=== PATIENT | male | born 1960 | race Caucasian/White ===

== ENCOUNTER → 2017-04-12 | Outpatient (CLI) | payer MEDICARE, OTHER, MEDICAID ==
--- NOTE | 2017-04-12 16:59 | RADIOLOGY REPORT (SQ) ---
EXAM DESCRIPTION: CT ABD/PELVIS COMBO COMPLETED DATE/TIME: 04/12/2017 4:00 pm REASON FOR STUDY: HEMATURIA R31.0 GROSS HEMATURIA COMPARISON: None. TECHNIQUE: CT scan of the abdomen and pelvis performed with and without intravenous contrast, and wi thout oral contrast. Contrasted imaging performed helical scanning technique and dynamic intravenous contrast injection. Images reviewed with lung, soft tissue, and bone windows. Reconstructed coronal a nd sagittal MPR images reviewed. Delayed images for evaluation of the urinary system also acquired. A ll images stored on PACS. All CT scanners at this facility use dose modulation, iterative reconstruction, and/or weight based d osing when appropriate to reduce radiation dose to as low as reasonably achievable (ALARA). [facility]: Dose Right [facility]: CareDose [facility]: Dose Right [facility]: Teradose 4D [facility]: Sensopia CONTRAST TYPE AND DOSE: contrast/concentration: Isovue 370.00 mg/ml; Total Contrast Delivered: 83.0 ml; Total Saline Delivered: 68.1 ml RENAL FUNCTION: Creatinine 1 RADIATION DOSE: Up-to-date CT equipment and radiation dose reduction techniques were employed. CTDIv ol: 10.8 - 12.1 mGy. DLP: 1910 mGy-cm. . LIMITATIONS: None. FINDINGS: NON-CONTRASTED IMAGING: Numerous intrarenal calculi are seen bilaterally. No ureteral or bladder calculus is appreciated. POST-CONTRASTED IMAGING: LOWER CHEST: No significant findings. No nodules or infiltrates. LIVER: Normal size. No masses or dilated ducts. SPLEEN: Normal size. No focal lesions. PANCREAS: No masses. No significant calcifications. No adjacent inflammation or peripancreatic fluid collections. Pancreatic duct not dilated. GALLBLADDER: No identified stones by CT criteria. No inflammatory changes to suggest cholecystitis. ADRENAL GLANDS: No significant masses or asymmetry. RIGHT KIDNEY AND URETER: No solid masses. Multiple intrarenal calcifications are present. No hydr onephrosis or hydroureter. LEFT KIDNEY AND URETER: No solid masses. Multiple intrarenal calcifications are present. No hydro nephrosis or hydroureter. AORTA AND VESSELS: No aneurysm. No dissection. Renal arteries, SMA, celiac without stenosis. RETROPERITONEUM: No retroperitoneal adenopathy, hemorrhage or masses. BOWEL AND PERITONEAL CAVITY: Large amount of stool is present. No mass is seen. APPENDIX: Not identified. PELVIS: The urinary bladder is normal. Prostate gland and seminal vesicles are unremarkable. ABDOMINAL WALL: No masses. No hernias. BONES: Surgical hardware is present in the left hip secondary to prior injury. OTHER: No other significant finding. IMPRESSION: 1. There are numerous renal calculi in each kidney with no ureteral stone or obstructio n. 2. There is a large amount of stool suggesting constipation. TECHNICAL DOCUMENTATION: JOB ID: [id number] Quality ID # [id number]: Final reports with documentation of one or more dose reduction techniques (e.g., Au tomated exposure control, adjustment of the mA and/or kV according to patient size, use of iterative reconstruction technique) 2010 [employer]- All Rights Reserved
== END ==
LOC: RAD 15:04
PROVIDERS: ATTEND Urology
DX: R31.0 Gross hematuria (principal)
CPT/HCPCS: 74178; 82565

== ENCOUNTER 2017-09-26 12:31 | Inpatient (IN) | payer MEDICARE, OTHER, MEDICAID ==
[2017-09-26] MEDS ORDERED: NORMAL SALINE 1000 ML 1,000 ML IV PRN (14:28)
[2017-09-26 15:05] LABS: ABSOLUTE BASOPHILS # (AUTO) 0.1 10^3/uL (0.0-0.2); ABSOLUTE LYMPHOCYTES (AUTO) 0.7 10^3/uL (0.5-4.7); ABSOLUTE MONOCYTES (AUTO) 0.4 10^3/uL (0.1-1.4); ABSOLUTE NEUT (AUTO) 9.2 10^3/uL (1.7-8.2); BASOPHILS % (AUTO) 0.9 % (0-2); HEMATOCRIT 39.6 % (37.9-51.0); HEMOGLOBIN 13.4 g/dL (13.5-17.0); HGB HCT DIFFERENCE 0.6; MEAN CORPUSCULAR HEMOGLOBIN 27.3 pg (27.0-33.4); MEAN CORPUSCULAR HGB CONC 33.8 g/dL (32.0-36.0); MEAN CORPUSCULAR VOLUME 81 fl (80-97); RED BLOOD COUNT 4.91 10^6/uL (4.35-5.55); RED CELL DISTRIBUTION WIDTH 13.2 % (11.5-14.0); SEGMENTED NEUTROPHILS % (AUTO) 88.1 % (42-78); WHITE BLOOD COUNT 10.4 10^3/uL (4.0-10.5)
[2017-09-26 15:26] LABS: ALANINE AMINOTRANSFERASE 27 U/L (21-72); ALBUMIN 4.3 g/dL (3.5-5.0); ALKALINE PHOSPHATASE 127 U/L (38-126); ANION GAP 16 (5-19); ASPARTATE AMINO TRANSFERASE 24 U/L (17-59); BILIRUBIN,DIRECT 0.3 mg/dL (0.0-0.4); BILIRUBIN,TOTAL 0.5 mg/dL (0.2-1.3); BLOOD UREA NITROGEN 23 mg/dL (7-20); CARBON DIOXIDE 28 mmol/L (22-30); CHLORIDE 100 mmol/L (98-107); CREATININE RESULT 1.07 mg/dL (0.52-1.25); GLUCOSE 135 mg/dL (75-110); POTASSIUM 3.5 mmol/L (3.6-5.0); TOTAL PROTEIN 6.9 g/dL (6.3-8.2)
[2017-09-26] MEDS ORDERED: NALOXONE HCL INJ/PF 0.4 MG/1 ML SDV ONE (17:33)
[2017-09-26] MEDS ORDERED: FENTANYL CITRATE INJ/PF 100 MCG/2 ML AMPUL ONE (17:34)
[2017-09-26] MEDS ORDERED: MIDAZOLAM 2 MG/2 ML INJ ONE ×3 (17:34)
[2017-09-26] MEDS ORDERED: GLUCAGON,HUMAN RECOMB 1 MG INJ ONE (17:35)
[2017-09-26] MEDS ORDERED: FLUMAZENIL INJ 0.5 MG/5 ML VIAL ONE (17:35)
[2017-09-26] MEDS ORDERED: EPINEPHRINE INJ 1 MG/10 ML DISP.SYRIN ONE (17:35)
[2017-09-26] MEDS: PANTOPRAZOLE SODIUM 40 MG VIAL IV SCH (17:50)
--- NOTE | 2017-09-26 20:07 | PDOC CONSULTATION ---
Consultation Consult Date: 09/26/17 History of Present Illness Admission Date/PCP: 09/26/17 12:31 EDDIE CALVIN MD History of Present Illness: This is a 57-year-old patient who was admitted directly to the hospital with coffee-ground emesis. Patient started to vomit last night and vomited multiple times during the night and 3 times while in the hospital. He has a chronic history of abdominal pain that is recurrent but he has been feeling more abdominal burning pain in the last few days. He denies bright red blood per rectum or black stools. On admission his hemoglobin was 13. Past Medical History Cardiac Medical History: Reports: Hypertension Pulmonary Medical History: Denies: Tuberculosis Neurological Medical History: Reports: Migraine Denies: Seizures GI Medical History: Reports: Gastroesophageal Reflux Disease Psychiatric Medical History: Reports: Depression Social History Smoking Status: Never Smoker Frequency of Alcohol Use: None Hx Recreational Drug Use: No Drugs: None Hx Prescription Drug Abuse: No - Advance Directive Resuscitation Status: Full Code Family History Family History: Reviewed & Not Pertinent Parental Family History Reviewed: No Children Family History Reviewed: NA Sibling(s) Family History Reviewed.: NA Medication/Allergy Home Medications: Calcium Carbonate/Vitamin D3 [Os-Bebeto 250 mg with Vitamin D 125 Units] 1 tab PO DAILY 09/26/17 Ergocalciferol (Vitamin D2) [Drisdol 50,000 Unit (1.25MG) Capsule] 50,000 unit PO TH@1000 09/26/17 Fludrocortisone Acetate [Florinef 0.1 mg Tablet] 0.1 mg PO DAILY 09/26/17 Hydrocodone Bit/Acetaminophen [Hydrocodon-Acetaminophen 5-325] 1 tab PO Q8HP PRN 09/26/17 Inulin/Chromium Picolinate [Fiber Gummies] 2 each PO DAILY 09/26/17 Magnesium Citrate 2 tbs PO DAILY 09/26/17 Melatonin 10 mg PO QHS 09/26/17 Polyethylene Glycol 3350 [Miralax Powder 17 gm/Packet] 1 packet PO Q2D@1800 Vortioxetine Hydrobromide [Brintellix] 10 mg PO DAILY 09/26/17 Allergies/Adverse Reactions: carbidopa [From Sinemet] Allergy (Severe, Verified 09/26/17 15:30) Hypotension levodopa [From Sinemet] Allergy (Severe, Verified 09/26/17 15:30) Hypotension duloxetine HCl [From Cymbalta] Allergy (Verified 09/08/15 18:25) Dizziness montelukast sodium [From Singulair] Allergy (Verified 09/08/15 18:25) Dizziness pregabalin [From Lyrica] Allergy (Verified 09/08/15 18:25) ropinirole Adverse Reaction (Verified 09/26/17 15:32) Hypotension Review of Systems All systems: reviewed and no additional remarkable complaints except as stated Physical Exam Vital Signs: Temp Pulse Resp BP Pulse Ox 97.1 F 90 14 154/93 H 98 09/26/17 17:06 09/26/17 19:40 09/26/17 19:40 09/26/17 19:40 09/26/17 19:40 Intake & Output 09/25/17 09/26/17 09/27/17 06:59 06:59 06:59 Intake Total 732 Output Total 150 Balance 582 Weight 70.5 kg Exam: General: Patient is alert and looks well. He has a facial expression consistent with Parkinson's HEENT: There is no pallor or jaundice. PERRLA. Oropharynx normal Respiratory: No chest deformity. No respiratory distress. Chest wall palpitation was unremarkable. Breath sounds were normal Cardiovascular: Heart sounds 1 and 2 normal with no murmurs. Abdominal: Not distended. Soft and nontender. Liver and spleen not palpable. No ascites demonstrated. Bowel sounds active. Rectal examination was deferred. Extremities: No edema Neurological: Alert and oriented x4. He is stiff Skin: No significant rash Psychological: Normal affect Results Laboratory Results: 09/26/17 14:57 09/26/17 14:57 09/26/17 09/26/17 14:57 14:57 WBC 10.4 RBC 4.91 Hgb 13.4 L Hct 39.6 MCV 81 MCH 27.3 MCHC 33.8 RDW 13.2 Plt Count 227 Seg Neutrophils % 88.1 H Lymphocytes % 7.0 L Monocytes % 4.0 Eosinophils % 0.0 Basophils % 0.9 Absolute Neutrophils 9.2 H Absolute Lymphocytes 0.7 Absolute Monocytes 0.4 Absolute Eosinophils 0.0 Absolute Basophils 0.1 Sodium 144.0 Potassium 3.5 L Chloride 100 Carbon Dioxide 28 Anion Gap 16 BUN 23 H Creatinine 1.07 Est GFR ( Amer) > 60 Est GFR (Non-Af Amer) > 60 Glucose 135 H Calcium 10.0 Total Bilirubin 0.5 AST 24 ALT 27 Alkaline Phosphatase 127 H Total Protein 6.9 Albumin 4.3 Assessment & Plan - Diagnosis (1) Vomiting Is this a current diagnosis for this admission?: Yes Plan: He has been vomiting since last night associated with abdominal pain and the etiology is unclear. He will undergo an EGD and if unremarkable CAT scan of his abdomen. He is not on a PPI at home (2) Coffee ground emesis Is this a current diagnosis for this admission?: Yes Plan: His hemoglobin was normal on admission but this will be followed up (3) Abdominal pain Is this a current diagnosis for this admission?: Yes
--- NOTE | 2017-09-26 20:09 | Operative Report ---
Operative Report DATE OF SURGERY: 09/26/17 Operative Report: Pre-op diagnosis: Vomiting and abdominal pain Post-op diagnosis: 1. Antral gastritis 2. 2-3 cm hiatal hernia 3. Large amount of liquid in the stomach Surgery: Esophagogastroduodenoscopy with biopsy Medications: Versed 2mg Fentanyl 50mcg IV push Tissue removed: Antral biopsy for pathology Procedure: After informed consent obtained from patient, the throat was sprayed with Hurricane and conscious sedation was achieved. The upper endoscope was inserted into the esophagus under direct vision and advanced into the stomach. The duodenum was entered and examined to the second part. Endoscope was then slowly pulled out of the patient as the mucosa was examined into details. Patient tolerated procedure well. Findings Esophagus: Diffuse loss of vascular markings most likely related to frequent vomiting Z-line at: 38 cm with top of the gastric fold at 40 cm Antrum: Mild erythema Body: Normal Fundus: Large amount of greenish liquid. Duodenum first part: Normal Duodenum second part: Normal Plan: Await pathology. Continue Protonix and schedule CT of the abdomen to rule out obstruction OPERATION: .
[2017-09-26] MEDS ORDERED: ONDANSETRON HCL 8 MG TABLET PO PRN (20:11)
[2017-09-26] MEDS: NORMAL SALINE 1000 ML 1,000 ML IV PRN (22:21)
[2017-09-27] MEDS: PANTOPRAZOLE SODIUM 40 MG VIAL IV SCH ×2 (05:26→18:19)
[2017-09-27] MEDS: NORMAL SALINE 1000 ML 1,000 ML IV PRN (06:35)
--- NOTE | 2017-09-27 12:03 | RADIOLOGY REPORT (SQ) ---
EXAM DESCRIPTION: CT ABD/PELVIS WITH IV ORAL COMPLETED DATE/TIME: 09/27/2017 11:11 am REASON FOR STUDY: abd pain,vomiting,r/o SBO. Reduce oral contrast K29.01 ACUTE GASTRITIS WITH BLEED ING R10.10 UPPER ABDOMINAL PAIN, UNSPECIFIED COMPARISON: 04/12/2017. TECHNIQUE: CT scan of the abdomen and pelvis performed with intravenous and oral contrast using [place] dee scanning technique with dynamic intravenous contrast injection. Images reviewed with lung, soft t issue, and bone windows. Reconstructed coronal and sagittal MPR images reviewed. Delayed images for e valuation of the urinary system also acquired. All images stored on PACS. All CT scanners at this facility use dose modulation, iterative reconstruction, and/or weight based d osing when appropriate to reduce radiation dose to as low as reasonably achievable (ALARA). [facility]: Dose Right [facility]: CareDose [facility]: Dose Right [facility]: Teradose 4D [facility]: [employer]Show CONTRAST TYPE AND DOSE: contrast/concentration: Isovue 370.00 mg/ml; Total Contrast Delivered: 76.0 ml; Total Saline Delivered: 67.0 ml RENAL FUNCTION: BUN 23 creatinine 1.07. RADIATION DOSE: CT Rad equipment meets quality standard of care and radiation dose reduction techniq ues were employed. CTDIvol: 10.0 - 11.5 mGy. DLP: 1150 mGy-cm.. LIMITATIONS: None. FINDINGS: LOWER CHEST: Infiltrate in the left lung base. LIVER: Normal size. No masses. No dilated ducts. SPLEEN: Normal size. No focal lesions. PANCREAS: No masses. No significant calcifications. No adjacent inflammation or peripancreatic fluid collections. Pancreatic duct not dilated. GALLBLADDER: No identified stones by CT criteria. No inflammatory changes to suggest cholecystitis. ADRENAL GLANDS: No significant masses or asymmetry. RIGHT KIDNEY AND URETER: No solid masses. Multiple calculi in the calices and renal pelvis. No hydro nephrosis or hydroureter. LEFT KIDNEY AND URETER: No solid masses. Multiple calculi in the calices and renal pelvis. No hydron ephrosis or hydroureter. AORTA AND VESSELS: No aneurysm. No dissection. Renal arteries, SMA, celiac without stenosis. RETROPERITONEUM: No retroperitoneal adenopathy, hemorrhage or masses. BOWEL AND PERITONEAL CAVITY: Prominent dilation of the proximal and mid small bowel. Distal small kade wel is not dilated. Contrast is present throughout the small bowel and into the proximal colon. Pro minent stool in the distal colon. No visualized masses. No free fluid. No inflammatory changes or th ickening of bowel wall. APPENDIX: Not visualized. PELVIS: No significant masses. Normal bladder. No free fluid. ABDOMINAL WALL: No masses. No hernias. BONES: No significant or acute findings. Left hip prosthesis. OTHER: No other significant finding. IMPRESSION: 1. PROMINENT DILATION OF THE PROXIMAL AND MID SMALL BOWEL CONSISTENT WITH MECHANICAL OBSTRUCTION. CO NTRAST IS PRESENT IN THE NONDILATED DISTAL SMALL BOWEL AND COLON SUGGESTING A PARTIAL OBSTRUCTION. 2. NUMEROUS NONOBSTRUCTING CALCULI IN BOTH KIDNEYS. 3. INFILTRATE IN THE LEFT LUNG BASE SECONDARY TO PNEUMONIA AND/OR ASPIRATION. TECHNICAL DOCUMENTATION: JOB ID: [id number] Quality ID # 436: Final reports with documentation of one or more dose reduction techniques (e.g., Au tomated exposure control, adjustment of the mA and/or kV according to patient size, use of iterative reconstruction technique) 2010 [employer]- All Rights Reserved
[2017-09-27] MEDS ORDERED: ONDANSETRON HCL 8 MG TABLET NG PRN (14:57)
[2017-09-27] MEDS ORDERED: PHARMACY COMMUNICATION ORDER MC NR (15:00)
--- NOTE | 2017-09-27 16:41 | RADIOLOGY REPORT (SQ) ---
EXAM DESCRIPTION: KUB/ABDOMEN (SINGLE VIEW) COMPLETED DATE/TIME: 09/27/2017 4:19 pm REASON FOR STUDY: Check Placement of NG Tube K29.01 ACUTE GASTRITIS WITH BLEEDING R10.10 UPPER ABD OMINAL PAIN, UNSPECIFIED COMPARISON: 10/02/2015. NUMBER OF VIEWS: One view. TECHNIQUE: Supine radiographic image of the upper abdomen acquired. LIMITATIONS: None. FINDINGS: BOWEL GAS PATTERN: Normal bowel gas pattern. No dilated loops. CALCIFICATIONS: No suspicious calcifications. SOFT TISSUES: No gross mass or suggestion of organomegaly. HARDWARE: Nasogastric tube with the tip in the stomach. The side hole is located at the level of the distal esophagus. BONES: No acute fracture. No worrisome bone lesions. OTHER: No other significant finding. IMPRESSION: NASOGASTRIC TUBE DESCRIBED. ADVANCEMENT BY AT LEAST 5 CM RECOMMENDED TO IMPROVE POSI TIONING. TECHNICAL DOCUMENTATION: JOB ID: [id number] [employer]- All Rights Reserved
--- NOTE | 2017-09-27 19:09 | PDOC H&P ---
History of Present Illness Admission Date/PCP: 09/26/17 12:31 EDDIE CALVIN MD History of Present Illness: Patient 57-year-old male with Parkinson disease, he came to the office for evaluation of vomiting, coffee-ground., He was admitted directly from the office to the hospital for evaluation. Consultation was requested from GI, Dr. Chaney, he underwent EGD was found to have antral gastritis and large amount of fluid in the stomach Past Medical History Cardiac Medical History: Reports: Hypertension Neurological Medical History: Reports: Migraine, Other - Parkinson disease GI Medical History: Reports: Gastroesophageal Reflux Disease Psychiatric Medical History: Reports: Depression Social History Smoking Status: Never Smoker Frequency of Alcohol Use: None Hx Recreational Drug Use: No Drugs: None Hx Prescription Drug Abuse: No - Advance Directive Resuscitation Status: Full Code Family History Family History: Reviewed & Not Pertinent Parental Family History Reviewed: Yes Children Family History Reviewed: Yes Sibling(s) Family History Reviewed.: Yes Medication/Allergy Home Medications: Calcium Carbonate/Vitamin D3 [Os-Bebeto 250 mg with Vitamin D 125 Units] 1 tab PO DAILY 09/26/17 Ergocalciferol (Vitamin D2) [Drisdol 50,000 Unit (1.25MG) Capsule] 50,000 unit PO TH@1000 09/26/17 Fludrocortisone Acetate [Florinef 0.1 mg Tablet] 0.1 mg PO DAILY 09/26/17 Hydrocodone Bit/Acetaminophen [Hydrocodon-Acetaminophen 5-325] 1 tab PO Q8HP PRN 09/26/17 Inulin/Chromium Picolinate [Fiber Gummies] 2 each PO DAILY 09/26/17 Magnesium Citrate 2 tbs PO DAILY 09/26/17 Melatonin 10 mg PO QHS 09/26/17 Polyethylene Glycol 3350 [Miralax Powder 17 gm/Packet] 1 packet PO Q2D@1800 Vortioxetine Hydrobromide [Brintellix] 10 mg PO DAILY 09/26/17 Allergies/Adverse Reactions: carbidopa [From Sinemet] Allergy (Severe, Verified 09/26/17 15:30) Hypotension levodopa [From Sinemet] Allergy (Severe, Verified 09/26/17 15:30) Hypotension duloxetine HCl [From Cymbalta] Allergy (Verified 09/08/15 18:25) Dizziness montelukast sodium [From Singulair] Allergy (Verified 09/08/15 18:25) Dizziness pregabalin [From Lyrica] Allergy (Verified 09/08/15 18:25) ropinirole Adverse Reaction (Verified 09/26/17 15:32) Hypotension Review of Systems Constitutional: ABSENT: chills, fever(s), headache(s), weight gain, weight loss Eyes: ABSENT: visual disturbances Ears: ABSENT: hearing changes Cardiovascular: ABSENT: chest pain, dyspnea on exertion, edema, orthropnea, palpitations Respiratory: ABSENT: cough, hemoptysis Gastrointestinal: PRESENT: vomiting Genitourinary: ABSENT: dysuria, hematuria Musculoskeletal: ABSENT: joint swelling Integumentary: ABSENT: rash, wounds Neurological: ABSENT: abnormal gait, abnormal speech, confusion, dizziness, focal weakness, syncope Psychiatric: ABSENT: anxiety, depression, homidical ideation, suicidal ideation Endocrine: ABSENT: cold intolerance, heat intolerance, menstrual abnormalities, polydipsia, polyuria Hematologic/Lymphatic: ABSENT: easy bleeding, easy bruising, lymphadenopathy Physical Exam Vital Signs: Temp Pulse Resp BP Pulse Ox 98.6 F 88 20 169/97 H 94 09/27/17 16:05 09/27/17 16:05 09/27/17 16:05 09/27/17 16:05 09/27/17 16:05 Intake & Output 09/26/17 09/27/17 09/28/17 06:59 06:59 06:59 Intake Total 2280 480 Output Total 150 150 Balance 2130 330 Weight 73.5 kg General appearance: PRESENT: no acute distress Head exam: PRESENT: atraumatic, normocephalic Eye exam: PRESENT: conjunctiva pink, EOMI, PERRLA Ear exam: PRESENT: normal external ear exam Mouth exam: PRESENT: moist, tongue midline Neck exam: PRESENT: full ROM Cardiovascular exam: PRESENT: RRR, +S1, +S2 Vascular exam: PRESENT: normal capillary refill GI/Abdominal exam: PRESENT: normal bowel sounds, soft Rectal exam: PRESENT: deferred Neurological exam: PRESENT: alert Psychiatric exam: PRESENT: appropriate affect, normal mood Skin exam: PRESENT: dry, intact, warm. ABSENT: cyanosis, rash Results Laboratory Results: 09/26/17 14:57 09/26/17 14:57 Impressions: Abdomen/Pelvis CT 09/27/17 07:00 IMPRESSION: 1. PROMINENT DILATION OF THE PROXIMAL AND MID SMALL BOWEL CONSISTENT WITH MECHANICAL OBSTRUCTION. CONTRAST IS PRESENT IN THE NONDILATED DISTAL SMALL BOWEL AND COLON SUGGESTING A PARTIAL OBSTRUCTION. 2. NUMEROUS NONOBSTRUCTING CALCULI IN BOTH KIDNEYS. 3. INFILTRATE IN THE LEFT LUNG BASE SECONDARY TO PNEUMONIA AND/OR ASPIRATION. KUB X-Ray 09/27/17 14:47 IMPRESSION: NASOGASTRIC TUBE DESCRIBED. ADVANCEMENT BY AT LEAST 5 CM RECOMMENDED TO IMPROVE POSITIONING. Assessment & Plan - Diagnosis (1) Upper gastrointestinal bleed Is this a current diagnosis for this admission?: Yes Plan: Patient is admitted, started on IV Protonix scheduled for CT scan of the abdomen and pelvis tomorrow (2) Parkinson's disease Is this a current diagnosis for this admission?: Yes
[2017-09-27] MEDS: HYDROMORPHONE HCL INJ/PF 2 MG/ML AMPULE IV PRN (19:16)
--- NOTE | 2017-09-27 20:42 | PDOC PROGRESS REPORT ---
Subjective Progress Note for:: 09/27/17 Subjective:: Patient was admitted yesterday because of concern for upper GI bleed, he had upper endoscopy that showed large amount of fluid in the stomach, obstruction was suspected a CAT scan of the abdomen and pelvis with contrast was done it should prominent dilation of the proximal and mid small bowel consistent with mechanical obstruction contrast is present in the non-dilated distal small bowel with colon suggesting partial obstruction there is infiltrate in the left lung base secondary to pneumonia or aspiration Reason For Visit: UPPER GI BLEED Physical Exam Vital Signs: Temp Pulse Resp BP Pulse Ox 98.6 F 88 20 169/97 H 94 09/27/17 16:05 09/27/17 16:05 09/27/17 16:05 09/27/17 16:05 09/27/17 16:05 Intake & Output 09/26/17 09/27/17 09/28/17 06:59 06:59 06:59 Intake Total 2280 1470 Output Total 150 820 Balance 2130 650 Weight 73.5 kg Head exam: PRESENT: atraumatic, normocephalic Eye exam: PRESENT: conjunctiva pink, EOMI, PERRLA Ear exam: PRESENT: normal external ear exam Mouth exam: PRESENT: moist, tongue midline Neck exam: PRESENT: full ROM Respiratory exam: PRESENT: clear to auscultation wilman Cardiovascular exam: PRESENT: RRR, +S1, +S2 Pulses: PRESENT: normal dorsalis pedis pul, +2 pedal pulses bilateral Vascular exam: PRESENT: normal capillary refill GI/Abdominal exam: PRESENT: normal bowel sounds, soft Rectal exam: PRESENT: deferred Neurological exam: PRESENT: alert, awake, oriented to person, oriented to place , oriented to time, oriented to situation, CN II-XII grossly intact Skin exam: PRESENT: dry, intact, warm Results Laboratory Results: 09/26/17 14:57 09/26/17 14:57 Impressions: Abdomen/Pelvis CT 09/27/17 07:00 IMPRESSION: 1. PROMINENT DILATION OF THE PROXIMAL AND MID SMALL BOWEL CONSISTENT WITH MECHANICAL OBSTRUCTION. CONTRAST IS PRESENT IN THE NONDILATED DISTAL SMALL BOWEL AND COLON SUGGESTING A PARTIAL OBSTRUCTION. 2. NUMEROUS NONOBSTRUCTING CALCULI IN BOTH KIDNEYS. 3. INFILTRATE IN THE LEFT LUNG BASE SECONDARY TO PNEUMONIA AND/OR ASPIRATION. KUB X-Ray 09/27/17 14:47 IMPRESSION: NASOGASTRIC TUBE DESCRIBED. ADVANCEMENT BY AT LEAST 5 CM RECOMMENDED TO IMPROVE POSITIONING. Assessment & Plan - Diagnosis (1) Upper gastrointestinal bleed Is this a current diagnosis for this admission?: Yes Plan: Nasogastric tube is inserted to suction (2) Parkinson's disease Is this a current diagnosis for this admission?: Yes (3) Small bowel obstruction Is this a current diagnosis for this admission?: Yes (4) Pneumonia Qualifiers: Pneumonia type: aspiration pneumonia Aspiration pneumonia type: due to vomit Laterality: left Lung location: lower lobe of lung Qualified Code(s) : J69.0 - Pneumonitis due to inhalation of food and vomit Is this a current diagnosis for this admission?: Yes Plan: The CAT scan suggest aspiration pneumonia, patient to be started on IV antibiotic, Unasyn
[2017-09-27] MEDS: DEXTROSE 5%-1/2 NORMAL SALINE 1,000 ML IV PRN (21:37)
[2017-09-27] MEDS: LABETALOL HCL INJ 20 MG/4 ML DISP.SYRIN IV PRN (21:39)
[2017-09-27] MEDS: AMPICILLIN SODIUM/SULBACTAM NA 3 GM in NORMAL SALINE 100 ML IV SCH ×2 (21:47→23:41)
[2017-09-28] MEDS: HYDROMORPHONE HCL INJ/PF 2 MG/ML AMPULE IV PRN (04:27)
[2017-09-28] MEDS: AMPICILLIN SODIUM/SULBACTAM NA 3 GM in NORMAL SALINE 100 ML IV SCH ×4 (05:27→23:13)
[2017-09-28] MEDS: PANTOPRAZOLE SODIUM 40 MG VIAL IV SCH ×2 (05:29→18:38)
--- NOTE | 2017-09-28 12:08 | RADIOLOGY REPORT (SQ) ---
EXAM DESCRIPTION: KUB/ABDOMEN (SINGLE VIEW) COMPLETED DATE/TIME: 09/28/2017 11:51 am REASON FOR STUDY: SBO K29.01 ACUTE GASTRITIS WITH BLEEDING R10.10 UPPER ABDOMINAL PAIN, UNSPECIFIE D COMPARISON: CT abdomen pelvis 09/27/2017, 04/12/2017 KUB 09/27/2017 NUMBER OF VIEWS: One view. TECHNIQUE: Supine radiographic image of the abdomen acquired. LIMITATIONS: None. FINDINGS: BOWEL GAS PATTERN: Oral contrast given for CT exam 09/27/2017 is now in the colon. There is persistent dilatation of small bowel loops in the mid abdomen, with mild small bowel wall th ickening. This is abnormal but nonspecific. Degree of distention of these bowel loops is less than on studies from 09/27/2017. CALCIFICATIONS: Multiple bilateral intrarenal calculi SOFT TISSUES: No gross mass or suggestion of organomegaly. HARDWARE: Nasogastric tube tip in the stomach fundus, side port in the GE junction region BONES: Left hip lag screw. Degenerative disc changes lumbar spine OTHER: No other significant finding. IMPRESSION: Nasogastric tube tip is in the stomach, side port at the GE junction. Oral contrast given for CT exam 09/27/2017 is in the colon. Persistent air-filled dilated small bowel loops, some of which have thickened folds. Degree of gaseo us distention is decreased compared to 09/27/2017. TECHNICAL DOCUMENTATION: JOB ID: [id number] [employer]- All Rights Reserved
--- NOTE | 2017-09-28 14:54 | PDOC PROGRESS REPORT ---
Subjective Progress Note for:: 09/28/17 Subjective:: Patient was seen by the bedside, he was admitted for the management of small bowel obstruction, KUB was done today it showed persistent dilatation of small bowel loops in the mid abdomen with mild small bowel wall thickening. The degree of distention of these bowel loops is less than studies from 09/27/2017. Consultation was requested from surgery. Reason For Visit: UPPER GI BLEED Physical Exam Vital Signs: Temp Pulse Resp BP Pulse Ox 97.9 F 67 18 151/88 H 97 09/28/17 12:27 09/28/17 12:27 09/28/17 12:27 09/28/17 12:27 09/28/17 12:27 Intake & Output 09/27/17 09/28/17 09/29/17 06:59 06:59 06:59 Intake Total 2280 3175 0 Output Total 150 1770 245 Balance 2130 1405 -245 Weight 73.5 kg 73.2 kg General appearance: PRESENT: mild distress Head exam: PRESENT: atraumatic, normocephalic Eye exam: PRESENT: conjunctiva pink, EOMI, PERRLA Mouth exam: PRESENT: moist, tongue midline Neck exam: PRESENT: full ROM Respiratory exam: PRESENT: clear to auscultation wilman Cardiovascular exam: PRESENT: RRR, +S1, +S2 Vascular exam: PRESENT: normal capillary refill GI/Abdominal exam: PRESENT: soft Rectal exam: PRESENT: deferred Neurological exam: PRESENT: alert, awake, oriented to person, oriented to place , oriented to time, oriented to situation, CN II-XII grossly intact Psychiatric exam: PRESENT: appropriate affect, normal mood Skin exam: PRESENT: dry, intact, warm Results Laboratory Results: 09/26/17 14:57 09/26/17 14:57 Impressions: Abdomen/Pelvis CT 09/27/17 07:00 IMPRESSION: 1. PROMINENT DILATION OF THE PROXIMAL AND MID SMALL BOWEL CONSISTENT WITH MECHANICAL OBSTRUCTION. CONTRAST IS PRESENT IN THE NONDILATED DISTAL SMALL BOWEL AND COLON SUGGESTING A PARTIAL OBSTRUCTION. 2. NUMEROUS NONOBSTRUCTING CALCULI IN BOTH KIDNEYS. 3. INFILTRATE IN THE LEFT LUNG BASE SECONDARY TO PNEUMONIA AND/OR ASPIRATION. KUB X-Ray 09/28/17 00:00 IMPRESSION: Nasogastric tube tip is in the stomach, side port at the GE junction. Oral contrast given for CT exam 09/27/2017 is in the colon. Persistent air-filled dilated small bowel loops, some of which have thickened folds. Degree of gaseous distention is decreased compared to 09/27/2017. Assessment & Plan - Diagnosis (1) Small bowel obstruction Is this a current diagnosis for this admission?: Yes Plan: We will continue nasogastric tube with suction, consultation requested from surgery (2) Upper gastrointestinal bleed Is this a current diagnosis for this admission?: Yes (3) Parkinson's disease Is this a current diagnosis for this admission?: Yes (4) Pneumonia Qualifiers: Pneumonia type: aspiration pneumonia Aspiration pneumonia type: due to vomit Laterality: left Lung location: lower lobe of lung Qualified Code(s) : J69.0 - Pneumonitis due to inhalation of food and vomit Is this a current diagnosis for this admission?: Yes Plan: Aspiration pneumonia suspected, on IV antibiotic.
[2017-09-28] MEDS: LABETALOL HCL INJ 20 MG/4 ML DISP.SYRIN IV PRN (18:38)
--- NOTE | 2017-09-28 19:22 | PDOC CONSULTATION ---
Consultation Consult Date: 09/28/17 Attending physician:: JL DODD Consult reason:: Small bowel obstruction History of Present Illness Admission Date/PCP: 09/26/17 12:31 EDDIE CALVIN MD Patient complains of: Abdominal pain, with nausea and vomiting. Patient had coffee-ground vomitus, and was seen in the office of his PCP. Upper endoscopy was done by the lead clinical research coordinator on-call, who noted a massively dilated, and fluid-filled stomach, that suggested small bowel obstruction. Patient was sent for CT scan which confirmed the diagnosis of small bowel obstruction. Surgical consultation has thus been requested Past Medical History Cardiac Medical History: Reports: Hypertension Pulmonary Medical History: Denies: Tuberculosis Neurological Medical History: Reports: Migraine, Other - Parkinson disease Denies: Seizures GI Medical History: Reports: Gastroesophageal Reflux Disease Psychiatric Medical History: Reports: Depression Social History Smoking Status: Never Smoker Frequency of Alcohol Use: None Hx Recreational Drug Use: No Drugs: None Hx Prescription Drug Abuse: No - Advance Directive Resuscitation Status: Full Code Family History Family History: Reviewed & Not Pertinent Parental Family History Reviewed: No Children Family History Reviewed: No Sibling(s) Family History Reviewed.: No Medication/Allergy Home Medications: Calcium Carbonate/Vitamin D3 [Os-Bebeto 250 mg with Vitamin D 125 Units] 1 tab PO DAILY 09/26/17 Ergocalciferol (Vitamin D2) [Drisdol 50,000 Unit (1.25MG) Capsule] 50,000 unit PO TH@1000 09/26/17 Fludrocortisone Acetate [Florinef 0.1 mg Tablet] 0.1 mg PO DAILY 09/26/17 Hydrocodone Bit/Acetaminophen [Hydrocodon-Acetaminophen 5-325] 1 tab PO Q8HP PRN 09/26/17 Inulin/Chromium Picolinate [Fiber Gummies] 2 each PO DAILY 09/26/17 Magnesium Citrate 2 tbs PO DAILY 09/26/17 Melatonin 10 mg PO QHS 09/26/17 Polyethylene Glycol 3350 [Miralax Powder 17 gm/Packet] 1 packet PO Q2D@1800 Vortioxetine Hydrobromide [Brintellix] 10 mg PO DAILY 09/26/17 Allergies/Adverse Reactions: carbidopa [From Sinemet] Allergy (Severe, Verified 09/26/17 15:30) Hypotension levodopa [From Sinemet] Allergy (Severe, Verified 09/26/17 15:30) Hypotension duloxetine HCl [From Cymbalta] Allergy (Verified 09/08/15 18:25) Dizziness montelukast sodium [From Singulair] Allergy (Verified 09/08/15 18:25) Dizziness pregabalin [From Lyrica] Allergy (Verified 09/08/15 18:25) ropinirole Adverse Reaction (Verified 09/26/17 15:32) Hypotension Physical Exam Vital Signs: Temp Pulse Resp BP Pulse Ox 97.8 F 63 16 184/89 H 94 09/28/17 16:27 09/28/17 16:27 09/28/17 16:27 09/28/17 16:27 09/28/17 16:27 Intake & Output 09/27/17 09/28/17 09/29/17 06:59 06:59 06:59 Intake Total 2280 3175 0 Output Total 150 1770 245 Balance 2130 1405 -245 Weight 73.5 kg 73.2 kg General appearance: PRESENT: no acute distress, cooperative, thin, well- developed Head exam: PRESENT: atraumatic, normocephalic Mouth exam: PRESENT: dry mucosa, neck supple, tongue midline Neck exam: PRESENT: full ROM. ABSENT: JVD, lymphadenopathy, tenderness, thyromegaly, tracheal deviation Respiratory exam: PRESENT: clear to auscultation wilman Cardiovascular exam: PRESENT: RRR GI/Abdominal exam: PRESENT: hyperactive bowel sounds, hypoactive bowel sounds, soft. ABSENT: rebound, rigid, tenderness Rectal exam: PRESENT: deferred Results Laboratory Results: 09/26/17 14:57 09/26/17 14:57 Impressions: Abdomen/Pelvis CT 09/27/17 07:00 IMPRESSION: 1. PROMINENT DILATION OF THE PROXIMAL AND MID SMALL BOWEL CONSISTENT WITH MECHANICAL OBSTRUCTION. CONTRAST IS PRESENT IN THE NONDILATED DISTAL SMALL BOWEL AND COLON SUGGESTING A PARTIAL OBSTRUCTION. 2. NUMEROUS NONOBSTRUCTING CALCULI IN BOTH KIDNEYS. 3. INFILTRATE IN THE LEFT LUNG BASE SECONDARY TO PNEUMONIA AND/OR ASPIRATION. KUB X-Ray 09/28/17 00:00 IMPRESSION: Nasogastric tube tip is in the stomach, side port at the GE junction. Oral contrast given for CT exam 09/27/2017 is in the colon. Persistent air-filled dilated small bowel loops, some of which have thickened folds. Degree of gaseous distention is decreased compared to 09/27/2017. Assessment & Plan - Diagnosis (1) Small bowel obstruction Is this a current diagnosis for this admission?: Yes - Plan Summary Plan Summary: Patient has a nasogastric tube, is on IV fluids, and is n.p.o. Given the absence of previous surgery, patient's obstruction may be related to an internal hernia. We will continue conservative management, and if the patient does not decompress within 48 hours, then surgical intervention will be considered.
[2017-09-28] MEDS: DEXTROSE 5%-1/2 NORMAL SALINE 1,000 ML IV PRN (22:27)
[2017-09-29] MEDS: LABETALOL HCL INJ 20 MG/4 ML DISP.SYRIN IV PRN ×3 (05:22→21:18)
[2017-09-29] MEDS: AMPICILLIN SODIUM/SULBACTAM NA 3 GM in NORMAL SALINE 100 ML IV SCH ×3 (05:31→18:41)
[2017-09-29] MEDS: PANTOPRAZOLE SODIUM 40 MG VIAL IV SCH (05:32)
[2017-09-29] MEDS: DEXTROSE 5%-1/2 NORMAL SALINE 1,000 ML IV PRN ×2 (11:21→23:06)
--- NOTE | 2017-09-29 12:51 | RADIOLOGY REPORT (SQ) ---
EXAM DESCRIPTION: KUB/ABDOMEN (SINGLE VIEW) COMPLETED DATE/TIME: 09/29/2017 12:24 pm REASON FOR STUDY: SBO COMPARISON: 09/28/2017 NUMBER OF VIEWS: One view. TECHNIQUE: Supine radiographic image of the abdomen acquired. LIMITATIONS: None. FINDINGS: Nasogastric tube tip in the stomach. Oral contrast within nondilated colon. IMPRESSION: NO RADIOGRAPHIC EVIDENCE FOR ACUTE ABDOMINAL DISEASE.
--- NOTE | 2017-09-29 13:04 | PDOC PROGRESS REPORT ---
Subjective Progress Note for:: 09/29/17 Subjective:: Patient seen by the bedside, he was admitted for the management of small bowel obstruction, aspiration pneumonia, KUB done today showed resolution of small bowel obstruction Reason For Visit: SBO UGIB ASPIRATION PNA LLL PARKINSONS Physical Exam Vital Signs: Temp Pulse Resp BP Pulse Ox 97.6 F 65 18 192/98 H 99 09/29/17 11:11 09/29/17 11:11 09/29/17 11:11 09/29/17 11:11 09/29/17 11:11 Intake & Output 09/28/17 09/29/17 09/30/17 06:59 06:59 06:59 Intake Total 3175 2420 0 Output Total 1770 1570 1035 Balance 1405 850 -1035 Weight 73.2 kg General appearance: PRESENT: no acute distress Eye exam: PRESENT: PERRLA Mouth exam: PRESENT: moist, tongue midline Neck exam: PRESENT: full ROM Respiratory exam: PRESENT: clear to auscultation wilman Cardiovascular exam: PRESENT: RRR, +S1, +S2 Vascular exam: PRESENT: normal capillary refill GI/Abdominal exam: PRESENT: normal bowel sounds, soft Rectal exam: PRESENT: deferred Neurological exam: PRESENT: alert. ABSENT: motor sensory deficit Psychiatric exam: PRESENT: appropriate affect, normal mood Skin exam: PRESENT: dry, intact, warm Results Laboratory Results: 09/26/17 14:57 09/26/17 14:57 Impressions: Abdomen/Pelvis CT 09/27/17 07:00 IMPRESSION: 1. PROMINENT DILATION OF THE PROXIMAL AND MID SMALL BOWEL CONSISTENT WITH MECHANICAL OBSTRUCTION. CONTRAST IS PRESENT IN THE NONDILATED DISTAL SMALL BOWEL AND COLON SUGGESTING A PARTIAL OBSTRUCTION. 2. NUMEROUS NONOBSTRUCTING CALCULI IN BOTH KIDNEYS. 3. INFILTRATE IN THE LEFT LUNG BASE SECONDARY TO PNEUMONIA AND/OR ASPIRATION. KUB X-Ray 09/29/17 00:00 IMPRESSION: NO RADIOGRAPHIC EVIDENCE FOR ACUTE ABDOMINAL DISEASE. Assessment & Plan - Diagnosis (1) Small bowel obstruction Is this a current diagnosis for this admission?: Yes Plan: We discontinue NG tube, start soft diet, start his regular antidepressant medications (2) Upper gastrointestinal bleed Is this a current diagnosis for this admission?: Yes (3) Parkinson's disease Is this a current diagnosis for this admission?: Yes (4) Pneumonia Qualifiers: Pneumonia type: aspiration pneumonia Aspiration pneumonia type: due to vomit Laterality: left Lung location: lower lobe of lung Qualified Code(s) : J69.0 - Pneumonitis due to inhalation of food and vomit Is this a current diagnosis for this admission?: Yes Plan: Continue IV antibiotic
[2017-09-29] MEDS ORDERED: (PENDING PHARMACY ID) (Vortioxetine Hydrobromide [Trintellix] 10 MG) PO SCH (13:15)
[2017-09-29 13:45] LABS: ABSOLUTE BASOPHILS # (AUTO) 0.1 10^3/uL (0.0-0.2); ABSOLUTE EOSINOPHILS # (AUTO) 0.3 10^3/uL (0.0-0.6); ABSOLUTE LYMPHOCYTES (AUTO) 1.1 10^3/uL (0.5-4.7); ABSOLUTE MONOCYTES (AUTO) 0.5 10^3/uL (0.1-1.4); ABSOLUTE NEUT (AUTO) 7.6 10^3/uL (1.7-8.2); BASOPHILS % (AUTO) 0.7 % (0-2); HEMATOCRIT 37.8 % (37.9-51.0); HEMOGLOBIN 12.6 g/dL (13.5-17.0); LYMPHOCYTES % (AUTO) 11.4 % (13-45); MEAN CORPUSCULAR HEMOGLOBIN 27.1 pg (27.0-33.4); MEAN CORPUSCULAR HGB CONC 33.4 g/dL (32.0-36.0); MEAN CORPUSCULAR VOLUME 81 fl (80-97); MONOCYTES % (AUTO) 5.5 % (3-13); RED BLOOD COUNT 4.66 10^6/uL (4.35-5.55); RED CELL DISTRIBUTION WIDTH 13.4 % (11.5-14.0); SEGMENTED NEUTROPHILS % (AUTO) 79.4 % (42-78); WHITE BLOOD COUNT 9.6 10^3/uL (4.0-10.5)
[2017-09-29 14:01] LABS: ALANINE AMINOTRANSFERASE 24 U/L (21-72); ALBUMIN 3.8 g/dL (3.5-5.0); ALKALINE PHOSPHATASE 101 U/L (38-126); ANION GAP 11 (5-19); ASPARTATE AMINO TRANSFERASE 39 U/L (17-59); BILIRUBIN,DIRECT 0.4 mg/dL (0.0-0.4); BILIRUBIN,TOTAL 1.1 mg/dL (0.2-1.3); BLOOD UREA NITROGEN 7 mg/dL (7-20); CALCIUM 8.7 mg/dL (8.4-10.2); CARBON DIOXIDE 30 mmol/L (22-30); CHLORIDE 102 mmol/L (98-107); CREATININE RESULT 0.72 mg/dL (0.52-1.25); GLUCOSE 95 mg/dL (75-110); SODIUM 142.6 mmol/L (137-145); TOTAL PROTEIN 6.7 g/dL (6.3-8.2)
[2017-09-29 14:10] LABS: POTASSIUM 2.7 mmol/L (3.6-5.0)
[2017-09-29] MEDS: POTASSI CL 20 MEQ/50 ML RIDER 20 MEQ/50 ML RTUPB IV SCH ×3 (16:40→22:00)
[2017-09-29] MEDS ORDERED: CALCIUM CARBONATE 250 MG/VITAMIN D3 125 UNIT TABLET PO SCH (18:00)
[2017-09-29] MEDS ORDERED: MAGNESIUM CITRATE 296 ML BOTTLE PO SCH (18:00)
--- NOTE | 2017-09-29 18:14 | PDOC PROGRESS REPORT ---
Subjective Progress Note for:: 09/29/17 Subjective:: Patient is without complaints, has had flatus, and wants food.His NG tube was removed at this morning as it was called up in the esophagus Reason For Visit: SBO UGIB ASPIRATION PNA LLL PARKINSONS Physical Exam Vital Signs: Temp Pulse Resp BP Pulse Ox 99.0 F 68 18 170/90 H 98 09/29/17 15:46 09/29/17 15:46 09/29/17 15:46 09/29/17 15:46 09/29/17 15:46 Intake & Output 09/28/17 09/29/17 09/30/17 06:59 06:59 06:59 Intake Total 3175 2420 0 Output Total 1770 1570 1035 Balance 1405 850 -1035 Weight 73.2 kg General appearance: PRESENT: no acute distress GI/Abdominal exam: PRESENT: normal bowel sounds, soft. ABSENT: guarding, mass, tenderness Results Laboratory Results: 09/29/17 13:00 09/29/17 13:00 09/29/17 09/29/17 13:00 13:00 WBC 9.6 RBC 4.66 Hgb 12.6 L Hct 37.8 L MCV 81 MCH 27.1 MCHC 33.4 RDW 13.4 Plt Count 173 Seg Neutrophils % 79.4 H Lymphocytes % 11.4 L Monocytes % 5.5 Eosinophils % 3.0 Basophils % 0.7 Absolute Neutrophils 7.6 Absolute Lymphocytes 1.1 Absolute Monocytes 0.5 Absolute Eosinophils 0.3 Absolute Basophils 0.1 Sodium 142.6 Potassium 2.7 L* Chloride 102 Carbon Dioxide 30 Anion Gap 11 BUN 7 Creatinine 0.72 Est GFR ( Amer) > 60 Est GFR (Non-Af Amer) > 60 Glucose 95 Calcium 8.7 Total Bilirubin 1.1 AST 39 ALT 24 Alkaline Phosphatase 101 Total Protein 6.7 Albumin 3.8 Impressions: Abdomen/Pelvis CT 09/27/17 07:00 IMPRESSION: 1. PROMINENT DILATION OF THE PROXIMAL AND MID SMALL BOWEL CONSISTENT WITH MECHANICAL OBSTRUCTION. CONTRAST IS PRESENT IN THE NONDILATED DISTAL SMALL BOWEL AND COLON SUGGESTING A PARTIAL OBSTRUCTION. 2. NUMEROUS NONOBSTRUCTING CALCULI IN BOTH KIDNEYS. 3. INFILTRATE IN THE LEFT LUNG BASE SECONDARY TO PNEUMONIA AND/OR ASPIRATION. KUB X-Ray 09/29/17 00:00 IMPRESSION: NO RADIOGRAPHIC EVIDENCE FOR ACUTE ABDOMINAL DISEASE. Assessment & Plan - Diagnosis (1) Small bowel obstruction Is this a current diagnosis for this admission?: Yes - Plan Summary Plan Summary: Patient will be started on clear liquid diet tonight, to be advanced in the a.m.
[2017-09-29] MEDS ORDERED: (PENDING PHARMACY ID) (Melatonin [Melatonin] 10 MG) PO SCH ×2 (22:00)
[2017-09-30] MEDS: AMPICILLIN SODIUM/SULBACTAM NA 3 GM in NORMAL SALINE 100 ML IV SCH ×5 (00:36→23:54)
[2017-09-30 01:50] LABS: ALANINE AMINOTRANSFERASE 28 U/L (21-72); ALBUMIN 3.7 g/dL (3.5-5.0); ALKALINE PHOSPHATASE 102 U/L (38-126); ANION GAP 13 (5-19); ASPARTATE AMINO TRANSFERASE 19 U/L (17-59); BILIRUBIN,DIRECT 0.3 mg/dL (0.0-0.4); BILIRUBIN,TOTAL 0.9 mg/dL (0.2-1.3); BLOOD UREA NITROGEN 7 mg/dL (7-20); CALCIUM 9.2 mg/dL (8.4-10.2); CARBON DIOXIDE 26 mmol/L (22-30); CHLORIDE 103 mmol/L (98-107); CREATININE RESULT 0.76 mg/dL (0.52-1.25); GLUCOSE 107 mg/dL (75-110); POTASSIUM 3.5 mmol/L (3.6-5.0); SODIUM 141.5 mmol/L (137-145); TOTAL PROTEIN 6.1 g/dL (6.3-8.2)
[2017-09-30] MEDS: POTASSI CL 20 MEQ/50 ML RIDER 20 MEQ/50 ML RTUPB IV SCH ×2 (08:44→11:11)
[2017-09-30 08:49] LABS: ABSOLUTE EOSINOPHILS # (AUTO) 0.3 10^3/uL (0.0-0.6); ABSOLUTE LYMPHOCYTES (AUTO) 1.2 10^3/uL (0.5-4.7); ABSOLUTE MONOCYTES (AUTO) 0.5 10^3/uL (0.1-1.4); ABSOLUTE NEUT (AUTO) 5.6 10^3/uL (1.7-8.2); BASOPHILS % (AUTO) 0.5 % (0-2); HEMATOCRIT 36.8 % (37.9-51.0); HEMOGLOBIN 12.3 g/dL (13.5-17.0); HGB HCT DIFFERENCE 0.1; LYMPHOCYTES % (AUTO) 15.4 % (13-45); MEAN CORPUSCULAR HGB CONC 33.4 g/dL (32.0-36.0); MEAN CORPUSCULAR VOLUME 81 fl (80-97); MONOCYTES % (AUTO) 7.1 % (3-13); RED BLOOD COUNT 4.56 10^6/uL (4.35-5.55); RED CELL DISTRIBUTION WIDTH 13.5 % (11.5-14.0); WHITE BLOOD COUNT 7.6 10^3/uL (4.0-10.5)
[2017-09-30 09:07] LABS: ALANINE AMINOTRANSFERASE 19 U/L (21-72); ALBUMIN 3.3 g/dL (3.5-5.0); ALKALINE PHOSPHATASE 87 U/L (38-126); ANION GAP 13 (5-19); ASPARTATE AMINO TRANSFERASE 23 U/L (17-59); BILIRUBIN,DIRECT 0.4 mg/dL (0.0-0.4); BLOOD UREA NITROGEN 7 mg/dL (7-20); CALCIUM 8.9 mg/dL (8.4-10.2); CARBON DIOXIDE 25 mmol/L (22-30); CHLORIDE 104 mmol/L (98-107); CREATININE RESULT 0.74 mg/dL (0.52-1.25); GLUCOSE 90 mg/dL (75-110); POTASSIUM 3.7 mmol/L (3.6-5.0); SODIUM 141.7 mmol/L (137-145); TOTAL PROTEIN 5.8 g/dL (6.3-8.2)
[2017-09-30] MEDS: LABETALOL HCL INJ 20 MG/4 ML DISP.SYRIN IV PRN ×4 (09:20→22:30)
[2017-09-30] MEDS: DEXTROSE 5%-1/2 NORMAL SALINE 1,000 ML IV PRN ×2 (13:38→22:38)
[2017-09-30] MEDS: MAGNESIUM CITRATE 296 ML BOTTLE NG SCH (17:38)
[2017-09-30] MEDS: CALCIUM CARBONATE 250 MG/VITAMIN D3 125 UNIT TABLET NG SCH (17:38)
[2017-09-30] MEDS ORDERED: PANTOPRAZOLE SODIUM 40 MG VIAL IV ONE (19:30)
--- NOTE | 2017-09-30 21:12 | PDOC PROGRESS REPORT ---
Subjective Progress Note for:: 10/07/17 Subjective:: Nurses stated that it seems that he was not tolerating feeds quite well today, was admitted for the management of small bowel obstruction, he complaint of burning sensation in his throat Reason For Visit: SBO UGIB ASPIRATION PNA LLL [place]IN[place]S Physical Exam Vital Signs: Temp Pulse Resp BP Pulse Ox 99.1 F 76 20 187/103 H 98 09/30/17 20:22 09/30/17 20:22 09/30/17 20:22 09/30/17 20:22 09/30/17 20:22 Intake & Output 09/29/17 09/30/17 10/01/17 06:59 06:59 06:59 Intake Total 2420 2000 1770 Output Total 1570 2210 800 Balance 850 -209 970 General appearance: PRESENT: no acute distress Eye exam: ABSENT: scleral icterus Mouth exam: PRESENT: moist, tongue midline Neck exam: PRESENT: full ROM Respiratory exam: PRESENT: clear to auscultation wilman Cardiovascular exam: PRESENT: RRR, +S1, +S2 Vascular exam: PRESENT: normal capillary refill GI/Abdominal exam: PRESENT: normal bowel sounds, soft Rectal exam: PRESENT: deferred Neurological exam: PRESENT: alert Skin exam: PRESENT: dry, intact, warm. ABSENT: cyanosis, rash Results Laboratory Results: 09/30/17 07:50 09/30/17 07:50 09/30/17 09/30/17 09/30/17 01:29 07:50 07:50 WBC 7.6 RBC 4.56 Hgb 12.3 L Hct 36.8 L MCV 81 MCH 27.0 MCHC 33.4 RDW 13.5 Plt Count 189 Seg Neutrophils % 73.0 Lymphocytes % 15.4 Monocytes % 7.1 Eosinophils % 4.0 Basophils % 0.5 Absolute Neutrophils 5.6 Absolute Lymphocytes 1.2 Absolute Monocytes 0.5 Absolute Eosinophils 0.3 Absolute Basophils 0.0 Sodium 141.5 141.7 Potassium 3.5 L 3.7 Chloride 103 104 Carbon Dioxide 26 25 Anion Gap 13 13 BUN 7 7 Creatinine 0.76 0.74 Est GFR ( Amer) > 60 > 60 Est GFR (Non-Af Amer) > 60 > 60 Glucose 107 90 Calcium 9.2 8.9 Total Bilirubin 0.9 1.0 AST 19 23 ALT 28 19 L Alkaline Phosphatase 102 87 Total Protein 6.1 L 5.8 L Albumin 3.7 3.3 L Impressions: Abdomen/Pelvis CT 09/27/17 07:00 IMPRESSION: 1. PROMINENT DILATION OF THE PROXIMAL AND MID SMALL BOWEL CONSISTENT WITH MECHANICAL OBSTRUCTION. CONTRAST IS PRESENT IN THE NONDILATED DISTAL SMALL BOWEL AND COLON SUGGESTING A PARTIAL OBSTRUCTION. 2. NUMEROUS NONOBSTRUCTING CALCULI IN BOTH KIDNEYS. 3. INFILTRATE IN THE LEFT LUNG BASE SECONDARY TO PNEUMONIA AND/OR ASPIRATION. KUB X-Ray 09/29/17 00:00 IMPRESSION: NO RADIOGRAPHIC EVIDENCE FOR ACUTE ABDOMINAL DISEASE. Assessment & Plan - Diagnosis (1) Small bowel obstruction Is this a current diagnosis for this admission?: Yes (2) Upper gastrointestinal bleed Is this a current diagnosis for this admission?: Yes (3) Parkinson's disease Is this a current diagnosis for this admission?: Yes (4) Pneumonia Qualifiers: Pneumonia type: aspiration pneumonia Aspiration pneumonia type: due to vomit Laterality: left Lung location: lower lobe of lung Qualified Code(s) : J69.0 - Pneumonitis due to inhalation of food and vomit Is this a current diagnosis for this admission?: Yes - Plan Summary Plan Summary: Will obtain small bowel series, 2,start back protonix
[2017-10-01] MEDS: HYDROMORPHONE HCL INJ/PF 2 MG/ML AMPULE IV PRN (01:07)
[2017-10-01] MEDS: AMPICILLIN SODIUM/SULBACTAM NA 3 GM in NORMAL SALINE 100 ML IV SCH ×4 (05:31→23:46)
[2017-10-01 08:08] LABS: ABSOLUTE EOSINOPHILS # (AUTO) 0.4 10^3/uL (0.0-0.6); ABSOLUTE LYMPHOCYTES (AUTO) 1.2 10^3/uL (0.5-4.7); ABSOLUTE MONOCYTES (AUTO) 0.6 10^3/uL (0.1-1.4); ABSOLUTE NEUT (AUTO) 4.7 10^3/uL (1.7-8.2); BASOPHILS % (AUTO) 0.4 % (0-2); EOSINOPHILS % (AUTO) 5.7 % (0-6); HEMATOCRIT 33.7 % (37.9-51.0); HEMOGLOBIN 11.7 g/dL (13.5-17.0); HGB HCT DIFFERENCE 1.4; LYMPHOCYTES % (AUTO) 17.9 % (13-45); MEAN CORPUSCULAR HGB CONC 34.7 g/dL (32.0-36.0); MEAN CORPUSCULAR VOLUME 81 fl (80-97); MONOCYTES % (AUTO) 8.3 % (3-13); RED BLOOD COUNT 4.17 10^6/uL (4.35-5.55); RED CELL DISTRIBUTION WIDTH 13.4 % (11.5-14.0); SEGMENTED NEUTROPHILS % (AUTO) 67.7 % (42-78); WHITE BLOOD COUNT 6.9 10^3/uL (4.0-10.5)
[2017-10-01 08:24] LABS: ALANINE AMINOTRANSFERASE 24 U/L (21-72); ALBUMIN 3.3 g/dL (3.5-5.0); ALKALINE PHOSPHATASE 87 U/L (38-126); ANION GAP 10 (5-19); ASPARTATE AMINO TRANSFERASE 19 U/L (17-59); BILIRUBIN,DIRECT 0.3 mg/dL (0.0-0.4); BILIRUBIN,TOTAL 0.7 mg/dL (0.2-1.3); BLOOD UREA NITROGEN 6 mg/dL (7-20); CALCIUM 8.9 mg/dL (8.4-10.2); CARBON DIOXIDE 26 mmol/L (22-30); CHLORIDE 104 mmol/L (98-107); CREATININE RESULT 0.73 mg/dL (0.52-1.25); GLUCOSE 98 mg/dL (75-110); POTASSIUM 3.4 mmol/L (3.6-5.0); SODIUM 140.1 mmol/L (137-145); TOTAL PROTEIN 5.6 g/dL (6.3-8.2)
[2017-10-01] MEDS: PANTOPRAZOLE SODIUM 40 MG VIAL IV SCH (09:37)
[2017-10-01] MEDS: DEXTROSE 5%-1/2 NORMAL SALINE 1,000 ML IV PRN ×2 (10:43→20:45)
--- NOTE | 2017-10-01 16:06 | RADIOLOGY REPORT (SQ) ---
EXAM DESCRIPTION: SMALL BOWEL SERIES COMPLETED DATE/TIME: 10/01/2017 2:14 pm REASON FOR STUDY: SBO COMPARISON: CT abdomen pelvis 09/27/2017. TECHNIQUE: Serial KUB films acquired after oral patient ingested oral water-soluble contrast. LIMITATIONS: None. FINDINGS: Director Of Retention film again demonstrates diffuse distention of the small bowel. Limited overhead justice ms demonstrate a normal appearing stomach. Contrast is seen throughout the small bowel and into the colon on the 1 hour and 30 minutes film. No areas of transition identified. IMPRESSION: Diffuse small bowel distention with contrast seen in the colon within normal time frame. Consider partial small bowel obstruction versus ileus. COMMENT: None TECHNICAL DOCUMENTATION: JOB ID: [id number] [employer]- All Rights Reserved
[2017-10-01] MEDS: MAGNESIUM CITRATE 296 ML BOTTLE NG SCH (19:02)
[2017-10-01] MEDS: CALCIUM CARBONATE 250 MG/VITAMIN D3 125 UNIT TABLET NG SCH (19:02)
[2017-10-01] MEDS: POTASSI CL 20 MEQ/50 ML RIDER 20 MEQ/50 ML RTUPB IV SCH ×2 (19:02→20:39)
[2017-10-01] MEDS: METOCLOPRAMIDE HCL INJ/PF 10 MG/2 ML SDV IV SCH (20:35)
--- NOTE | 2017-10-01 21:15 | PDOC PROGRESS REPORT ---
Subjective Progress Note for:: 10/01/17 Subjective:: Patient was seen by the bedside, he had small bowel series, it showed diffuse distended small bowel with contrast in the colon there is no transition point to suggest mechanical obstruction this is most likely ileus Reason For Visit: SBO UGIB ASPIRATION PNA LLL [place] Physical Exam Vital Signs: Temp Pulse Resp BP Pulse Ox 98.7 F 88 20 160/106 H 98 10/01/17 15:48 10/01/17 15:48 10/01/17 15:48 10/01/17 15:48 10/01/17 15:48 Intake & Output 09/30/17 10/01/17 10/02/17 06:59 06:59 06:59 Intake Total 2000 2541 1200 Output Total 0 1300 1525 Balance -209 1241 -325 Weight 75.3 kg General appearance: PRESENT: no acute distress Eye exam: PRESENT: PERRLA Respiratory exam: PRESENT: clear to auscultation wilman Cardiovascular exam: PRESENT: +S1, +S2 GI/Abdominal exam: PRESENT: soft Neurological exam: PRESENT: alert Results Laboratory Results: 10/01/17 07:33 10/01/17 07:33 10/01/17 10/01/17 07:33 07:33 WBC 6.9 RBC 4.17 L Hgb 11.7 L Hct 33.7 L MCV 81 MCH 28.0 MCHC 34.7 RDW 13.4 Plt Count 196 Seg Neutrophils % 67.7 Lymphocytes % 17.9 Monocytes % 8.3 Eosinophils % 5.7 Basophils % 0.4 Absolute Neutrophils 4.7 Absolute Lymphocytes 1.2 Absolute Monocytes 0.6 Absolute Eosinophils 0.4 Absolute Basophils 0.0 Sodium 140.1 Potassium 3.4 L Chloride 104 Carbon Dioxide 26 Anion Gap 10 BUN 6 L Creatinine 0.73 Est GFR ( Amer) > 60 Est GFR (Non-Af Amer) > 60 Glucose 98 Calcium 8.9 Total Bilirubin 0.7 AST 19 ALT 24 Alkaline Phosphatase 87 Total Protein 5.6 L Albumin 3.3 L Impressions: Abdomen/Pelvis CT 09/27/17 07:00 IMPRESSION: 1. PROMINENT DILATION OF THE PROXIMAL AND MID SMALL BOWEL CONSISTENT WITH MECHANICAL OBSTRUCTION. CONTRAST IS PRESENT IN THE NONDILATED DISTAL SMALL BOWEL AND COLON SUGGESTING A PARTIAL OBSTRUCTION. 2. NUMEROUS NONOBSTRUCTING CALCULI IN BOTH KIDNEYS. 3. INFILTRATE IN THE LEFT LUNG BASE SECONDARY TO PNEUMONIA AND/OR ASPIRATION. KUB X-Ray 09/29/17 00:00 IMPRESSION: NO RADIOGRAPHIC EVIDENCE FOR ACUTE ABDOMINAL DISEASE. Small Bowel X-Ray 10/01/17 00:00 IMPRESSION: Diffuse small bowel distention with contrast seen in the colon within normal time frame. Consider partial small bowel obstruction versus ileus. Assessment & Plan - Diagnosis (1) Small bowel obstruction Is this a current diagnosis for this admission?: Yes (2) Upper gastrointestinal bleed Is this a current diagnosis for this admission?: Yes (3) Parkinson's disease Is this a current diagnosis for this admission?: Yes (4) Pneumonia Qualifiers: Pneumonia type: aspiration pneumonia Aspiration pneumonia type: due to vomit Laterality: left Lung location: lower lobe of lung Qualified Code(s) : J69.0 - Pneumonitis due to inhalation of food and vomit Is this a current diagnosis for this admission?: Yes (5) Ileus Is this a current diagnosis for this admission?: Yes Plan: This is most likely ileus, Dilaudid will be discontinued because this will also affect GI motility by her causing hypokinesia, he will be treated with intravenous Reglan for little while to help with motility of the GI tract
[2017-10-01] MEDS ORDERED: LABETALOL HCL INJ 20 MG/4 ML DISP.SYRIN IV ONE (22:18)
[2017-10-01] MEDS: LABETALOL HCL INJ 20 MG/4 ML DISP.SYRIN IV PRN (22:20)
[2017-10-02 01:19] LABS: ALANINE AMINOTRANSFERASE 21 U/L (21-72); ALBUMIN 3.6 g/dL (3.5-5.0); ALKALINE PHOSPHATASE 99 U/L (38-126); ANION GAP 12 (5-19); ASPARTATE AMINO TRANSFERASE 23 U/L (17-59); BILIRUBIN,DIRECT 0.4 mg/dL (0.0-0.4); BILIRUBIN,TOTAL 0.7 mg/dL (0.2-1.3); BLOOD UREA NITROGEN 7 mg/dL (7-20); CALCIUM 9.1 mg/dL (8.4-10.2); CARBON DIOXIDE 24 mmol/L (22-30); CHLORIDE 109 mmol/L (98-107); CREATININE RESULT 0.86 mg/dL (0.52-1.25); GLUCOSE 92 mg/dL (75-110); POTASSIUM 3.6 mmol/L (3.6-5.0); SODIUM 144.6 mmol/L (137-145); TOTAL PROTEIN 6.3 g/dL (6.3-8.2)
[2017-10-02] MEDS: METOCLOPRAMIDE HCL INJ/PF 10 MG/2 ML SDV IV SCH ×4 (02:38→21:10)
[2017-10-02] MEDS: ENALAPRILAT DIHYDRATE INJ/PF 2.5 MG/2 ML SDV IV PRN (02:38)
[2017-10-02] MEDS: AMPICILLIN SODIUM/SULBACTAM NA 3 GM in NORMAL SALINE 100 ML IV SCH ×3 (05:40→17:45)
[2017-10-02] MEDS: DEXTROSE 5%-1/2 NORMAL SALINE 1,000 ML IV PRN (05:41)
[2017-10-02] MEDS: LABETALOL HCL INJ 20 MG/4 ML DISP.SYRIN IV PRN (08:22)
[2017-10-02 09:08] LABS: ABSOLUTE BASOPHILS # (AUTO) 0.1 10^3/uL (0.0-0.2); ABSOLUTE EOSINOPHILS # (AUTO) 0.4 10^3/uL (0.0-0.6); ABSOLUTE LYMPHOCYTES (AUTO) 1.2 10^3/uL (0.5-4.7); ABSOLUTE MONOCYTES (AUTO) 0.7 10^3/uL (0.1-1.4); ABSOLUTE NEUT (AUTO) 6.7 10^3/uL (1.7-8.2); BASOPHILS % (AUTO) 0.6 % (0-2); HEMATOCRIT 34.3 % (37.9-51.0); HEMOGLOBIN 11.7 g/dL (13.5-17.0); HGB HCT DIFFERENCE 0.8; LYMPHOCYTES % (AUTO) 12.9 % (13-45); MEAN CORPUSCULAR HEMOGLOBIN 27.4 pg (27.0-33.4); MEAN CORPUSCULAR VOLUME 81 fl (80-97); MONOCYTES % (AUTO) 7.9 % (3-13); RED BLOOD COUNT 4.26 10^6/uL (4.35-5.55); RED CELL DISTRIBUTION WIDTH 13.4 % (11.5-14.0); SEGMENTED NEUTROPHILS % (AUTO) 74.6 % (42-78)
[2017-10-02 09:30] LABS: ALANINE AMINOTRANSFERASE 27 U/L (21-72); ALBUMIN 3.3 g/dL (3.5-5.0); ALKALINE PHOSPHATASE 97 U/L (38-126); ANION GAP 13 (5-19); ASPARTATE AMINO TRANSFERASE 19 U/L (17-59); BILIRUBIN,DIRECT 0.3 mg/dL (0.0-0.4); BILIRUBIN,TOTAL 0.7 mg/dL (0.2-1.3); BLOOD UREA NITROGEN 7 mg/dL (7-20); CALCIUM 8.4 mg/dL (8.4-10.2); CARBON DIOXIDE 21 mmol/L (22-30); CHLORIDE 106 mmol/L (98-107); CREATININE RESULT 0.82 mg/dL (0.52-1.25); GLUCOSE 101 mg/dL (75-110); POTASSIUM 3.2 mmol/L (3.6-5.0); SODIUM 140.1 mmol/L (137-145); TOTAL PROTEIN 5.7 g/dL (6.3-8.2)
[2017-10-02] MEDS: PANTOPRAZOLE SODIUM 40 MG VIAL IV SCH (10:19)
[2017-10-02] MEDS: POTASSI CL 20 MEQ/50 ML RIDER 20 MEQ/50 ML RTUPB IV SCH ×2 (16:04→19:31)
[2017-10-02] MEDS: DEXTROSE 5%-WATER 1000 ML 1,000 ML IV PRN (16:04)
[2017-10-02] MEDS: CALCIUM CARBONATE 250 MG/VITAMIN D3 125 UNIT TABLET NG SCH (17:45)
[2017-10-02] MEDS: MAGNESIUM CITRATE 296 ML BOTTLE NG SCH (19:17)
--- NOTE | 2017-10-02 20:20 | PDOC PROGRESS REPORT ---
Subjective Progress Note for:: 10/02/17 Subjective:: Patient seems to have increased GI motility, he has diarrhea. The blood pressure was quite high, presently on intravenous Vasotec and as needed labetalol. Reason For Visit: SBO UGIB ASPIRATION PNA LLL PARKINSONS Physical Exam Vital Signs: Temp Pulse Resp BP Pulse Ox 97.8 F 80 16 148/87 H 100 10/02/17 16:50 10/02/17 16:50 10/02/17 16:50 10/02/17 16:50 10/02/17 16:50 Intake & Output 10/01/17 10/02/17 10/03/17 06:59 06:59 06:59 Intake Total 2541 2915 550 Output Total 1300 2026 550 Balance 1241 889 0 Weight 75.3 kg 77.7 kg General appearance: PRESENT: no acute distress Head exam: PRESENT: atraumatic, normocephalic Eye exam: PRESENT: conjunctiva pink, EOMI, PERRLA Ear exam: PRESENT: normal external ear exam Mouth exam: PRESENT: moist, tongue midline Neck exam: PRESENT: full ROM Respiratory exam: PRESENT: clear to auscultation wilman Cardiovascular exam: PRESENT: RRR, +S1, +S2 Pulses: PRESENT: normal dorsalis pedis pul, +2 pedal pulses bilateral Vascular exam: PRESENT: normal capillary refill GI/Abdominal exam: PRESENT: normal bowel sounds, soft Rectal exam: PRESENT: deferred Neurological exam: PRESENT: alert Psychiatric exam: PRESENT: appropriate affect, normal mood Skin exam: PRESENT: dry, intact, warm. ABSENT: cyanosis, rash Results Laboratory Results: 10/02/17 08:37 10/02/17 08:37 10/02/17 10/02/17 10/02/17 00:22 01:00 08:37 WBC 9.0 RBC 4.26 L Hgb 11.7 L Hct 34.3 L MCV 81 MCH 27.4 MCHC 34.0 RDW 13.4 Plt Count 211 Seg Neutrophils % 74.6 Lymphocytes % 12.9 L Monocytes % 7.9 Eosinophils % 4.0 Basophils % 0.6 Absolute Neutrophils 6.7 Absolute Lymphocytes 1.2 Absolute Monocytes 0.7 Absolute Eosinophils 0.4 Absolute Basophils 0.1 Sodium Cancelled 144.6 Potassium Cancelled 3.6 Chloride Cancelled 109 H Carbon Dioxide Cancelled 24 Anion Gap Cancelled 12 BUN Cancelled 7 Creatinine Cancelled 0.86 Est GFR ( Amer) Cancelled > 60 Est GFR (Non-Af Amer) Cancelled > 60 Glucose Cancelled 92 Calcium Cancelled 9.1 Total Bilirubin Cancelled 0.7 AST Cancelled 23 ALT Cancelled 21 Alkaline Phosphatase Cancelled 99 Total Protein Cancelled 6.3 Albumin Cancelled 3.6 10/02/17 08:37 WBC RBC Hgb Hct MCV MCH MCHC RDW Plt Count Seg Neutrophils % Lymphocytes % Monocytes % Eosinophils % Basophils % Absolute Neutrophils Absolute Lymphocytes Absolute Monocytes Absolute Eosinophils Absolute Basophils Sodium 140.1 Potassium 3.2 L Chloride 106 Carbon Dioxide 21 L Anion Gap 13 BUN 7 Creatinine 0.82 Est GFR ( Amer) > 60 Est GFR (Non-Af Amer) > 60 Glucose 101 Calcium 8.4 Total Bilirubin 0.7 AST 19 ALT 27 Alkaline Phosphatase 97 Total Protein 5.7 L Albumin 3.3 L Impressions: Abdomen/Pelvis CT 09/27/17 07:00 IMPRESSION: 1. PROMINENT DILATION OF THE PROXIMAL AND MID SMALL BOWEL CONSISTENT WITH MECHANICAL OBSTRUCTION. CONTRAST IS PRESENT IN THE NONDILATED DISTAL SMALL BOWEL AND COLON SUGGESTING A PARTIAL OBSTRUCTION. 2. NUMEROUS NONOBSTRUCTING CALCULI IN BOTH KIDNEYS. 3. INFILTRATE IN THE LEFT LUNG BASE SECONDARY TO PNEUMONIA AND/OR ASPIRATION. KUB X-Ray 09/29/17 00:00 IMPRESSION: NO RADIOGRAPHIC EVIDENCE FOR ACUTE ABDOMINAL DISEASE. Small Bowel X-Ray 10/01/17 00:00 IMPRESSION: Diffuse small bowel distention with contrast seen in the colon within normal time frame. Consider partial small bowel obstruction versus ileus. Assessment & Plan - Diagnosis (1) Small bowel obstruction Is this a current diagnosis for this admission?: Yes (2) Upper gastrointestinal bleed Is this a current diagnosis for this admission?: Yes (3) Parkinson's disease Is this a current diagnosis for this admission?: Yes (4) Pneumonia Qualifiers: Pneumonia type: aspiration pneumonia Aspiration pneumonia type: due to vomit Laterality: left Lung location: lower lobe of lung Qualified Code(s) : J69.0 - Pneumonitis due to inhalation of food and vomit Is this a current diagnosis for this admission?: Yes (5) Ileus Is this a current diagnosis for this admission?: Yes - Plan Summary Plan Summary: The normal saline infusion is discontinued, IV fluid exchange to 5% dextrose
[2017-10-03] MEDS: METOCLOPRAMIDE HCL INJ/PF 10 MG/2 ML SDV IV SCH ×4 (03:17→20:22)
[2017-10-03] MEDS: DEXTROSE 5%-WATER 1000 ML 1,000 ML IV PRN (05:00)
[2017-10-03] MEDS: AMPICILLIN SODIUM/SULBACTAM NA 3 GM in NORMAL SALINE 100 ML IV SCH ×6 (05:11→23:56)
[2017-10-03] MEDS: ENALAPRILAT DIHYDRATE INJ/PF 2.5 MG/2 ML SDV IV PRN (07:57)
[2017-10-03 09:00] LABS: ABSOLUTE BASOPHILS # (AUTO) 0.1 10^3/uL (0.0-0.2); ABSOLUTE EOSINOPHILS # (AUTO) 0.4 10^3/uL (0.0-0.6); ABSOLUTE LYMPHOCYTES (AUTO) 1.2 10^3/uL (0.5-4.7); ABSOLUTE MONOCYTES (AUTO) 0.9 10^3/uL (0.1-1.4); ABSOLUTE NEUT (AUTO) 6.7 10^3/uL (1.7-8.2); BASOPHILS % (AUTO) 0.6 % (0-2); EOSINOPHILS % (AUTO) 4.7 % (0-6); HEMATOCRIT 36.4 % (37.9-51.0); HEMOGLOBIN 12.4 g/dL (13.5-17.0); HGB HCT DIFFERENCE 0.8; LYMPHOCYTES % (AUTO) 12.7 % (13-45); MEAN CORPUSCULAR HEMOGLOBIN 27.6 pg (27.0-33.4); MEAN CORPUSCULAR VOLUME 81 fl (80-97); MONOCYTES % (AUTO) 9.6 % (3-13); RED BLOOD COUNT 4.49 10^6/uL (4.35-5.55); RED CELL DISTRIBUTION WIDTH 13.5 % (11.5-14.0); SEGMENTED NEUTROPHILS % (AUTO) 72.4 % (42-78); WHITE BLOOD COUNT 9.2 10^3/uL (4.0-10.5)
[2017-10-03] MEDS: PANTOPRAZOLE SODIUM 40 MG VIAL IV SCH (09:06)
[2017-10-03 09:12] LABS: ALANINE AMINOTRANSFERASE 30 U/L (21-72); ALBUMIN 3.6 g/dL (3.5-5.0); ALKALINE PHOSPHATASE 102 U/L (38-126); ANION GAP 12 (5-19); ASPARTATE AMINO TRANSFERASE 25 U/L (17-59); BILIRUBIN,DIRECT 0.5 mg/dL (0.0-0.4); BILIRUBIN,TOTAL 0.8 mg/dL (0.2-1.3); BLOOD UREA NITROGEN 7 mg/dL (7-20); CALCIUM 9.1 mg/dL (8.4-10.2); CARBON DIOXIDE 23 mmol/L (22-30); CHLORIDE 104 mmol/L (98-107); GLUCOSE 98 mg/dL (75-110); POTASSIUM 3.5 mmol/L (3.6-5.0); SODIUM 139.4 mmol/L (137-145); TOTAL PROTEIN 6.3 g/dL (6.3-8.2)
[2017-10-03] MEDS ORDERED: ERGOCALCIFEROL (VITAMIN D2) 50000 UNIT (1.25 MG) CAPSULE PO SCH (10:00)
[2017-10-03] MEDS: LABETALOL HCL INJ 20 MG/4 ML DISP.SYRIN IV PRN (13:31)
[2017-10-03] MEDS: CALCIUM CARBONATE 250 MG/VITAMIN D3 125 UNIT TABLET NG SCH (18:22)
[2017-10-03] MEDS: MAGNESIUM CITRATE 296 ML BOTTLE NG SCH (18:22)
--- NOTE | 2017-10-03 19:20 | PDOC PROGRESS REPORT ---
Subjective Progress Note for:: 10/03/17 Subjective:: He was seen by the bedside, with transition to full mechanical soft diet Reason For Visit: SBO UGIB ASPIRATION PNA LLL PARKINSONS Physical Exam Vital Signs: Temp Pulse Resp BP Pulse Ox 98.9 F 71 16 165/99 H 96 10/03/17 15:32 10/03/17 15:32 10/03/17 15:32 10/03/17 15:32 10/03/17 15:32 Intake & Output 10/02/17 10/03/17 10/04/17 06:59 06:59 06:59 Intake Total 2915 3794 1470 Output Total 2025 1050 550 Balance 889 2744 920 Weight 77.7 kg 75 kg General appearance: PRESENT: no acute distress Head exam: PRESENT: atraumatic, normocephalic Eye exam: PRESENT: conjunctiva pink, EOMI, PERRLA Neck exam: PRESENT: full ROM Respiratory exam: PRESENT: clear to auscultation wilman Cardiovascular exam: PRESENT: RRR, +S1, +S2 GI/Abdominal exam: PRESENT: normal bowel sounds, soft Rectal exam: PRESENT: deferred Neurological exam: PRESENT: alert Psychiatric exam: PRESENT: appropriate affect, normal mood Skin exam: PRESENT: dry, intact, warm. ABSENT: cyanosis, rash Results Laboratory Results: 10/03/17 08:05 10/03/17 08:05 10/03/17 10/03/17 08:05 08:05 WBC 9.2 RBC 4.49 Hgb 12.4 L Hct 36.4 L MCV 81 MCH 27.6 MCHC 34.0 RDW 13.5 Plt Count 251 Seg Neutrophils % 72.4 Lymphocytes % 12.7 L Monocytes % 9.6 Eosinophils % 4.7 Basophils % 0.6 Absolute Neutrophils 6.7 Absolute Lymphocytes 1.2 Absolute Monocytes 0.9 Absolute Eosinophils 0.4 Absolute Basophils 0.1 Sodium 139.4 Potassium 3.5 L Chloride 104 Carbon Dioxide 23 Anion Gap 12 BUN 7 Creatinine 1.20 Est GFR ( Amer) > 60 Est GFR (Non-Af Amer) > 60 Glucose 98 Calcium 9.1 Total Bilirubin 0.8 AST 25 ALT 30 Alkaline Phosphatase 102 Total Protein 6.3 Albumin 3.6 Impressions: Abdomen/Pelvis CT 09/27/17 07:00 IMPRESSION: 1. PROMINENT DILATION OF THE PROXIMAL AND MID SMALL BOWEL CONSISTENT WITH MECHANICAL OBSTRUCTION. CONTRAST IS PRESENT IN THE NONDILATED DISTAL SMALL BOWEL AND COLON SUGGESTING A PARTIAL OBSTRUCTION. 2. NUMEROUS NONOBSTRUCTING CALCULI IN BOTH KIDNEYS. 3. INFILTRATE IN THE LEFT LUNG BASE SECONDARY TO PNEUMONIA AND/OR ASPIRATION. KUB X-Ray 09/29/17 00:00 IMPRESSION: NO RADIOGRAPHIC EVIDENCE FOR ACUTE ABDOMINAL DISEASE. Small Bowel X-Ray 10/01/17 00:00 IMPRESSION: Diffuse small bowel distention with contrast seen in the colon within normal time frame. Consider partial small bowel obstruction versus ileus. Assessment & Plan - Diagnosis (1) Small bowel obstruction Is this a current diagnosis for this admission?: Yes (2) Upper gastrointestinal bleed Is this a current diagnosis for this admission?: Yes (3) Parkinson's disease Is this a current diagnosis for this admission?: Yes (4) Pneumonia Qualifiers: Pneumonia type: aspiration pneumonia Aspiration pneumonia type: due to vomit Laterality: left Lung location: lower lobe of lung Qualified Code(s) : J69.0 - Pneumonitis due to inhalation of food and vomit Is this a current diagnosis for this admission?: Yes (5) Ileus Is this a current diagnosis for this admission?: Yes
[2017-10-03] MEDS ORDERED: ONDANSETRON HCL 8 MG TABLET PO PRN (22:12)
[2017-10-04] MEDS: LABETALOL HCL INJ 20 MG/4 ML DISP.SYRIN IV PRN (00:22)
[2017-10-04] MEDS: METOCLOPRAMIDE HCL INJ/PF 10 MG/2 ML SDV IV SCH ×4 (05:19→22:36)
[2017-10-04] MEDS: ENALAPRILAT DIHYDRATE INJ/PF 2.5 MG/2 ML SDV IV PRN (08:59)
[2017-10-04 09:14] LABS: ABSOLUTE BASOPHILS # (AUTO) 0.1 10^3/uL (0.0-0.2); ABSOLUTE EOSINOPHILS # (AUTO) 0.4 10^3/uL (0.0-0.6); ABSOLUTE LYMPHOCYTES (AUTO) 1.2 10^3/uL (0.5-4.7); ABSOLUTE MONOCYTES (AUTO) 0.7 10^3/uL (0.1-1.4); ABSOLUTE NEUT (AUTO) 5.4 10^3/uL (1.7-8.2); BASOPHILS % (AUTO) 0.9 % (0-2); HEMATOCRIT 35.5 % (37.9-51.0); HGB HCT DIFFERENCE 0.5; LYMPHOCYTES % (AUTO) 15.7 % (13-45); MEAN CORPUSCULAR HEMOGLOBIN 27.5 pg (27.0-33.4); MEAN CORPUSCULAR HGB CONC 33.8 g/dL (32.0-36.0); MEAN CORPUSCULAR VOLUME 81 fl (80-97); MONOCYTES % (AUTO) 8.6 % (3-13); RED BLOOD COUNT 4.36 10^6/uL (4.35-5.55); RED CELL DISTRIBUTION WIDTH 13.6 % (11.5-14.0); SEGMENTED NEUTROPHILS % (AUTO) 69.8 % (42-78); WHITE BLOOD COUNT 7.8 10^3/uL (4.0-10.5)
[2017-10-04 09:41] LABS: ALANINE AMINOTRANSFERASE 40 U/L (21-72); ALBUMIN 3.6 g/dL (3.5-5.0); ALKALINE PHOSPHATASE 107 U/L (38-126); ANION GAP 14 (5-19); ASPARTATE AMINO TRANSFERASE 27 U/L (17-59); BILIRUBIN,DIRECT 0.4 mg/dL (0.0-0.4); BILIRUBIN,TOTAL 0.8 mg/dL (0.2-1.3); BLOOD UREA NITROGEN 7 mg/dL (7-20); CALCIUM 9.4 mg/dL (8.4-10.2); CARBON DIOXIDE 23 mmol/L (22-30); CHLORIDE 106 mmol/L (98-107); CREATININE RESULT 0.94 mg/dL (0.52-1.25); GLUCOSE 87 mg/dL (75-110); POTASSIUM 3.3 mmol/L (3.6-5.0); SODIUM 142.6 mmol/L (137-145); TOTAL PROTEIN 6.6 g/dL (6.3-8.2)
[2017-10-04] MEDS ORDERED: POTASSIUM CHLORIDE 10 MEQ TABLET.SA PO ONE (17:27)
[2017-10-04] MEDS ORDERED: CALCIUM CARBONATE 250 MG/VITAMIN D3 125 UNIT TABLET PO SCH (18:00)
[2017-10-04] MEDS ORDERED: MAGNESIUM CITRATE 296 ML BOTTLE PO SCH (18:00)
--- NOTE | 2017-10-04 21:18 | PDOC DISCHARGE SUMMARY ---
General - Admit/Disc Date/PCP Admission Date/Primary Care Provider: 09/26/17 12:31 EDDIE CALVIN MD Discharge Date: 10/05/17 - Discharge Diagnosis (1) Small bowel obstruction Is this a current diagnosis for this admission?: Yes (2) Upper gastrointestinal bleed Is this a current diagnosis for this admission?: Yes (3) Parkinson's disease Is this a current diagnosis for this admission?: Yes (4) Pneumonia Is this a current diagnosis for this admission?: Yes (5) Ileus Is this a current diagnosis for this admission?: Yes - Additional Information Resuscitation Status: Full Code Home Medications: Calcium Carbonate/Vitamin D3 [Os-Bebeto 250 mg with Vitamin D 125 Units] 1 tab PO DAILY 09/26/17 Ergocalciferol (Vitamin D2) [Drisdol 50,000 unit (1.25MG) Capsule] 50,000 unit PO TH@1000 09/26/17 Fludrocortisone Acetate [Florinef 0.1 mg Tablet] 0.1 mg PO DAILY 09/26/17 Hydrocodone Bit/Acetaminophen [Hydrocodon-Acetaminophen 5-325] 1 tab PO Q8HP PRN 09/26/17 Inulin/Chromium Picolinate [Fiber Gummies] 2 each PO DAILY 09/26/17 Magnesium Citrate 2 tbs PO DAILY 09/26/17 Melatonin 10 mg PO QHS 09/26/17 Polyethylene Glycol 3350 [Miralax Powder 17 gm/Packet] 1 packet PO Q2D@1800 Vortioxetine Hydrobromide [Trintellix] 10 mg PO DAILY 09/26/17 History of Present Illness History of Present Illness: Patient 57-year-old male with Parkinson disease, he came to the office for evaluation of vomiting, coffee-ground., He was admitted directly from the office to the hospital for evaluation. Consultation was requested from GI, Dr. Chaney, he underwent EGD was found to have antral gastritis and large amount of fluid in the stomach Hospital Course Hospital Course: Patient was admitted when he presented to the office with vomiting coffee- ground that suggest upper GI bleed he underwent EGD the day he was admitted he was found to have distended stomach, small bowel obstruction was suspected on the basis of the EGD. A CAT scan of the abdomen and pelvis was done, it showed dilated small bowel there was no transition point he was treated with NG tube for prolonged period of time, he also has small bowel series that confirmed relieved of obstruction He also had aspiration pneumonia, this was treated with antibiotic, Unasyn to cover anaerobes, gram-negative and gram- positive organisms. Physical Exam Vital Signs: Temp Pulse Resp BP Pulse Ox 98.1 F 81 18 155/93 H 99 10/04/17 16:57 10/04/17 16:57 10/04/17 16:57 10/04/17 16:57 10/04/17 16:57 Intake & Output 10/03/17 10/04/17 10/05/17 06:59 06:59 06:59 Intake Total 3794 2047 950 Output Total 1050 1150 1000 Balance 2744 897 -50 Weight 75 kg 75.2 kg General appearance: PRESENT: no acute distress, well-developed, well-nourished Head exam: PRESENT: atraumatic, normocephalic Eye exam: PRESENT: conjunctiva pink, EOMI, PERRLA Ear exam: PRESENT: normal external ear exam Mouth exam: PRESENT: moist, tongue midline Neck exam: PRESENT: full ROM Respiratory exam: PRESENT: clear to auscultation wilman Cardiovascular exam: PRESENT: RRR, +S1, +S2 Pulses: PRESENT: normal dorsalis pedis pul, +2 pedal pulses bilateral Vascular exam: PRESENT: normal capillary refill GI/Abdominal exam: PRESENT: normal bowel sounds, soft Rectal exam: PRESENT: deferred Neurological exam: PRESENT: alert Psychiatric exam: PRESENT: appropriate affect, normal mood Skin exam: PRESENT: dry, intact, warm Results Laboratory Results: 10/04/17 08:45 10/04/17 08:45 10/04/17 10/04/17 08:45 08:45 WBC 7.8 RBC 4.36 Hgb 12.0 L Hct 35.5 L MCV 81 MCH 27.5 MCHC 33.8 RDW 13.6 Plt Count 257 Seg Neutrophils % 69.8 Lymphocytes % 15.7 Monocytes % 8.6 Eosinophils % 5.0 Basophils % 0.9 Absolute Neutrophils 5.4 Absolute Lymphocytes 1.2 Absolute Monocytes 0.7 Absolute Eosinophils 0.4 Absolute Basophils 0.1 Sodium 142.6 Potassium 3.3 L Chloride 106 Carbon Dioxide 23 Anion Gap 14 BUN 7 Creatinine 0.94 Est GFR ( Amer) > 60 Est GFR (Non-Af Amer) > 60 Glucose 87 Calcium 9.4 Total Bilirubin 0.8 AST 27 ALT 40 Alkaline Phosphatase 107 Total Protein 6.6 Albumin 3.6 Impressions: Abdomen/Pelvis CT 09/27/17 07:00 IMPRESSION: 1. PROMINENT DILATION OF THE PROXIMAL AND MID SMALL BOWEL CONSISTENT WITH MECHANICAL OBSTRUCTION. CONTRAST IS PRESENT IN THE NONDILATED DISTAL SMALL BOWEL AND COLON SUGGESTING A PARTIAL OBSTRUCTION. 2. NUMEROUS NONOBSTRUCTING CALCULI IN BOTH KIDNEYS. 3. INFILTRATE IN THE LEFT LUNG BASE SECONDARY TO PNEUMONIA AND/OR ASPIRATION. KUB X-Ray 09/29/17 00:00 IMPRESSION: NO RADIOGRAPHIC EVIDENCE FOR ACUTE ABDOMINAL DISEASE. Small Bowel X-Ray 10/01/17 00:00 IMPRESSION: Diffuse small bowel distention with contrast seen in the colon within normal time frame. Consider partial small bowel obstruction versus ileus.
[2017-10-04 22:00] LABS: ANION GAP 11 (5-19); BLOOD UREA NITROGEN 10 mg/dL (7-20); CALCIUM 9.3 mg/dL (8.4-10.2); CARBON DIOXIDE 26 mmol/L (22-30); CHLORIDE 103 mmol/L (98-107); CREATININE RESULT 0.96 mg/dL (0.52-1.25); GLUCOSE 107 mg/dL (75-110); POTASSIUM 3.2 mmol/L (3.6-5.0); SODIUM 139.6 mmol/L (137-145)
[2017-10-04] MEDS ORDERED: POTASSI CL 20 MEQ/50 ML RIDER 20 MEQ/50 ML RTUPB IV ONE (22:00)
[2017-10-05] MEDS: LABETALOL HCL INJ 20 MG/4 ML DISP.SYRIN IV PRN (00:42)
[2017-10-05] MEDS: METOCLOPRAMIDE HCL INJ/PF 10 MG/2 ML SDV IV SCH ×2 (02:44→08:28)
[2017-10-05 07:59] LABS: ABSOLUTE BASOPHILS # (AUTO) 0.1 10^3/uL (0.0-0.2); ABSOLUTE EOSINOPHILS # (AUTO) 0.4 10^3/uL (0.0-0.6); ABSOLUTE LYMPHOCYTES (AUTO) 1.8 10^3/uL (0.5-4.7); ABSOLUTE MONOCYTES (AUTO) 0.7 10^3/uL (0.1-1.4); BASOPHILS % (AUTO) 1.3 % (0-2); EOSINOPHILS % (AUTO) 4.8 % (0-6); HEMOGLOBIN 12.5 g/dL (13.5-17.0); HGB HCT DIFFERENCE 1.5; LYMPHOCYTES % (AUTO) 22.3 % (13-45); MEAN CORPUSCULAR HGB CONC 34.7 g/dL (32.0-36.0); MEAN CORPUSCULAR VOLUME 81 fl (80-97); RED BLOOD COUNT 4.47 10^6/uL (4.35-5.55); RED CELL DISTRIBUTION WIDTH 13.3 % (11.5-14.0); SEGMENTED NEUTROPHILS % (AUTO) 62.6 % (42-78)
[2017-10-05 08:15] LABS: ALANINE AMINOTRANSFERASE 42 U/L (21-72); ALBUMIN 3.7 g/dL (3.5-5.0); ALKALINE PHOSPHATASE 111 U/L (38-126); ANION GAP 14 (5-19); ASPARTATE AMINO TRANSFERASE 33 U/L (17-59); BILIRUBIN,DIRECT 0.5 mg/dL (0.0-0.4); BILIRUBIN,TOTAL 0.6 mg/dL (0.2-1.3); BLOOD UREA NITROGEN 9 mg/dL (7-20); CALCIUM 9.7 mg/dL (8.4-10.2); CARBON DIOXIDE 23 mmol/L (22-30); CHLORIDE 105 mmol/L (98-107); CREATININE RESULT 0.99 mg/dL (0.52-1.25); GLUCOSE 85 mg/dL (75-110); POTASSIUM 3.8 mmol/L (3.6-5.0); SODIUM 141.8 mmol/L (137-145)
[2017-10-05] MEDS: ENALAPRILAT DIHYDRATE INJ/PF 2.5 MG/2 ML SDV IV PRN (08:30)
[2017-10-05 11:56] VITALS: BP 176/98
== END 2017-10-05 12:22 | disposition home health service (06) | DRG 377 ==
LOC: 3N 12:31 → OBSVTOIN 12:31
PROVIDERS: ADMIT Internal Medicine; ATTEND Internal Medicine
PROC: 0DB68ZX Excision of Stomach, Via Natural or Artificial Opening Endoscopic, Diagnostic (ICD-10-PCS; principal; 2017-09-26 18:30)
DX: K29.71 Gastritis, unspecified, with bleeding (principal); J69.0 Pneumonitis due to inhalation of food and vomit; K56.609 Unspecified intestinal obstruction, unspecified as to partial versus complete obstruction; K44.9 Diaphragmatic hernia without obstruction or gangrene; K21.9 Gastro-esophageal reflux disease without esophagitis; I10 Essential (primary) hypertension; F32.9 Major depressive disorder, single episode, unspecified; G20 Parkinson's disease; Z79.4 Long term (current) use of insulin; Z79.899 Other long term (current) drug therapy; Z91.09 Other allergy status, other than to drugs and biological substances
CPT/HCPCS: 36415; 43239; 74000; 74177; 74250; 80048; 80053; 80076; 85025; 88305; 88342; G0378; G0379; J0171; J0295; J1170; J1610; J2250; J2310; J2765; J3010; J3480; J3490; J7030; J7060; S0119; S0164